=== PATIENT | male | born 1970 | race Caucasian/White ===

== ENCOUNTER 2016-10-22 15:00 | Outpatient (RCR) | payer OTHER | END 2016-10-23 | disposition home or self-care (01) | LOC: WSPT | DX: M25.512 Pain in left shoulder (principal); M25.511 Pain in right shoulder; M54.5 Low back pain; M25.562 Pain in left knee; M25.561 Pain in right knee | CPT/HCPCS: G8978-GP; G8979-GP ==

== ENCOUNTER → 2017-09-24 | Outpatient (CLI) | payer OTHER | LOC: COL.RAD 07:30 | DX: M51.17 Intervertebral disc disorders with radiculopathy, lumbosacral region (principal); M51.16 Intervertebral disc disorders with radiculopathy, lumbar region; G89.29 Other chronic pain; G44.53 Primary thunderclap headache ==